=== PATIENT | female | born 1970 | race Caucasian/White ===

== ENCOUNTER → 2017-09-06 14:48 | Outpatient (CLI) | payer MEDICAID, SELFPAY ==
--- NOTE | 2017-09-06 14:53 | HPBI_ITS ---
MAMMOGRAPHY - BILATERAL SCREENING REASON FOR EXAM: Female, 46 years old. Routine annual screening examination. PERTINENT HISTORY: Non-contributory. TECHNIQUE: Digital bilateral breast johnny (3D mammographic acquisition) in the CC and MLO projections. 2-D mediolateral oblique (MLO) and craniocaudad (CC) views of both breasts were obtained. CAD: Full Field Digital Mammography with Computer Added Detection was performed. COMPARISON: Comparison is made with prior study dated June 13, 2016. FINDINGS: Breast Composition: The breasts are heterogeneously dense, which may obscure small masses. There are no dominant masses or suspicious calcifications. No other significant abnormalities are identified. There has been no significant change since the prior study. HPBI/SCREENING MAMM (CAD), BILAT IMPRESSION: Stable bilateral screening mammogram. Yearly follow-up mammogram recommended. (A) ASSESSMENT CATEGORY: BIRADS Category 1: Negative. A letter regarding these results will be sent to the patient by the facility within 30 days. Approximately 10% of breast cancers are not detected by mammography. A normal mammogram should not delay biopsy of a clinically suspicious abnormality. [id number] Electronically Signed: Charan Thurman MD at 9:29 EST Tel [phone], Service support ,
== END ==
PROVIDERS: Visit Provider Obstetrics & Gynecology
DX: Z12.31 Encounter for screening mammogram for malignant neoplasm of breast (principal)
CPT/HCPCS: 77063; 77067

== ENCOUNTER → 2018-07-06 11:36 | Outpatient (CLI) | payer MEDICAID, SELFPAY ==
[2018-07-13 12:39] LABS: HPV APTIMA, High Risk Negative (Negative)
== END ==
PROVIDERS: Visit Provider Obstetrics & Gynecology
DX: Z12.4 Encounter for screening for malignant neoplasm of cervix (principal)
CPT/HCPCS: 88175; G0145

== ENCOUNTER → 2020-06-24 12:10 | Outpatient (CLI) | payer BC, SELFPAY ==
[2020-06-19 10:20] VITALS: BMI 25.2
--- NOTE | 2020-06-24 12:11 | BI_ITS ---
MAMMOGRAPHY - BILATERAL SCREENING REASON FOR EXAM: Female, 49 years old. Routine annual screening examination. PERTINENT HISTORY: Patient for breast reduction surgery TECHNIQUE: Digital bilateral breast jay (3D mammographic acquisition) in the CC and MLO projections. 2-D mediolateral oblique (MLO) and craniocaudad (CC) views of both breasts were obtained. CAD: Full Field Digital Mammography with Computer Added Detection was performed. COMPARISON: 09/06/2017 FINDINGS: Breast Composition: Dense There are no dominant masses or suspicious calcifications. No other significant abnormalities are identified. BI/SCREEN MAMM (CAD) W/JAY BILAT IMPRESSION: Stable bilateral screening mammogram. Yearly follow-up mammogram recommended. (A) ASSESSMENT CATEGORY: BIRADS Category 1: Negative. A letter regarding these results will be sent to the patient by the facility within 30 days. Approximately 10% of breast cancers are not detected by mammography. A normal mammogram should not delay biopsy of a clinically suspicious abnormality. [id number] Electronically Signed: Vadim Prieto, at 14:11 EST Tel , Service support ,
== END ==
LOC: OPBI 12:11
PROVIDERS: Referring Provider Nurse Practitioner Family; Visit Provider Nurse Practitioner Family
DX: Z12.31 Encounter for screening mammogram for malignant neoplasm of breast (principal)
CPT/HCPCS: 77063; 77067

== ENCOUNTER 2020-06-29 13:16 | Observation (INO) | payer SELFPAY ==
[2020-06-19 10:20] VITALS: BMI 25.2
--- NOTE | 2020-06-28 12:05 | PCM.HP.BLA ---
History and Physical Date of Admission: 06/29/20 HISTORY OF PRESENT ILLNESS 49 year old female presents with complaints of bilateral macromastia as well as associated painful symptomatology of neck pain, thoracic back pain, bilateral shoulder pain from shoulder grooving from the weight of her breast on her bra straps, an inframammary intertrigo for which she uses powders for relief. She denies any trauma to her breasts. Denies any nipple discharge. She likes to go jogging and is having trouble because of the painful symptomatology. She had a recent mammogram on 06/24/20. It showed breast Composition was dense. There are no dominant masses or suspicious calcifications. No other significant abnormalities are identified. She presents at this time for further evaluation and treatment. PAST MEDICAL HISTORY Intertrigo Shoulder pain Chronic thoracic back pain Chronic neck pain Macromastia Breast lump IBS (irritable bowel syndrome) PAST SURGICAL HISTORY ALLERGIES No Known Allergies MEDICATIONS None FAMILY HISTORY Grandfather - Colon cancer Grandmother - CVA (cerebral vascular accident) Sister - Seizures Father - Skin cancer SOCIAL HISTORY Smoking Status: Never smoker REVIEW OF SYSTEMS General - Denies fever, weight loss, and fatigue. Eyes - Denies cataracts and glaucoma. ENT - Denies nasal congestion and sore throat. Endocrine - Denies excessive thirst and urination. Skin - Denies suspicious lesions and skin cancer. Has inframammary intertrigo for which she uses powders for relief. Musculoskeletal - Denies weakness of muscles and joints, and arthritis. Has joint pain and joint stiffness and neck pain and back pain. Her neck and back pain involve cervical and thoracic area. Has bilateral shoulder pain from shoulder grooving from the weight of her breasts on her bra straps. Neuro - She has a history of headaches and migraines. Cardiovascular - Denies chest pain, fatigue, and shortness of breath with exertion. Psych - Denies anxiety and depression. Respiratory - Denies chronic cough and shortness of breath. Gastrointestinal - Denies nausea, vomiting, diarrhea, and constipation. Hematologic - Denies abnormal bruising and bleeding. Genitourinary - Denies hematuria and urinary frequency. PHYSICAL EXAMINATION General - Alert and oriented. Her bra size is DD. HEENT - PERRL. EOMI. Throat is clear. Neck - Supple. No cervical adenopathy. No bony tenderness. There is some pericervical soft tissue tenderness. Lungs- Clear to auscultation. Heart - Regular rate and rhythm. Breasts - Patient has bilateral macromastia. No breast masses palpable. No axillary adenopathy noted. There is additional breast tissue on the left lateral breast near the axilla. Measures 7 cm. Distance from midclavicular line on the left to nipple is 29 cm and from the nipple to the inframammary fold is 12 cm. Distance from midclavicular line on the right to the nipple is 29 cm and from the nipple to the inframammary fold is 11 cm. Nipple areolar complex diameter is 7 cm bilaterally. No active inframammary intertrigo noted at this time. Abdomen - Soft and non distended. Back - No bony tenderness noted. There is perivertebral soft tissue tenderness in the upper thoracic area. Extremities - FROM. No axillary adenopathy. Radial pulses are palpable. There is some bilateral shoulder tenderness with shoulder grooving from the weight of her breasts on her bra straps. Neuro - CN II-XII grossly intact. Psych - Normal mood and affect. ASSESSMENT 1. Bilateral macromastia. 2. Neck pain. 3. Thoracic back pain. 4. Bilateral shoulder pain from shoulder grooving from the weight of the breasts on her bra straps. 5. Inframammary intertrigo. PLAN Discussed with the patient the procedure of breast reduction mammoplasty. I feel this procedure would be beneficial in this patient as it would help relieve her painful symptomatology. She had a mammogram on 06/24/20. It showed breast Composition was dense. There are no dominant masses or suspicious calcifications. No other significant abnormalities are identified. At some point postoperatively would like to get a breast reduction baseline mammogram. I would remove approximately 500 grams of breast tissue per side. We will send the tissue to pathology for analysis to rule out carcinoma. At the time of the breast reduction, will excise the additional breast tissue on the left lateral breast near the axilla. Discussed with patient the extent of scarring for this procedure. The biggest risk for wound healing problems is the T-zone area. Usually wound care and sometimes antibiotics are necessary for healing in this area. She would have drains in for a few day depending on the amount of tissue that is removed. She will be on antibiotics until the drains are removed. In general, the final breast size will be in the high B to low C range. Patient voices understanding. Surgery will be done under general anesthesia with a surgical observation overnight stay in the hospital. She will have drains in for a few days and be maintained on antibiotics until the drains are removed. She will be on a lifting restriction for 6 weeks and wear a surgical compression bra for 6 weeks. The patient doesn't want to wait for insurance approval for the surgery. She wants to proceed, and she understands she will be financially responsible. She voices understanding. Patient was informed of the risks and complication of the procedure including alternatives to surgery. These were discussed with her personally. She voices understanding and wishes to proceed. Some of the risks and complications were included in a form from the [employer]. She had questions regarding her surgery that were answered personally and to her satisfaction. Her consents were signed. Photographs were taken today. We discussed the current risks associated with COVID-19. While it is understood that there is a community spread of COVID-19, the risk of gabriela COVID-19 while at [facility] ([facility]) is very low; however, the risk cannot be completely mitigated because of the community spread of the disease. We discussed in detail the risk of exposure to and/or potential harm posed by the COVID-19 virus with having a surgery/procedure at this time versus the risk of delaying the surgery/procedure. It is not possible to know either the risk of delaying the surgery or procedure or chance of getting an infection with perfect accuracy, but a joint decision was made to proceed at this time with the scheduled surgery/procedure as indicated on the consent form. Patient was notified that we will need to comply with any screening or testing [facility] wishes to perform or that surgery may be delayed for any positive results. Discussed with the patient that I was tested for COVID-19 on 01/30/20 which was negative and on 02/13/20 which was negative and on 02/27/20 which was negative and on 03/12/20 which was negative and on 03/26/20 which was negative and on 04/16/20 which was negative and on 05/07/20 which was negative and on 06/11/20 which was negative. My testing regimen at this time is to be COVID-19 tested every 2 weeks or so. Procedure Criteria Procedure Type: Elective COVID Risk Discussion: The surgeon/proceduralist and patient have discussed in detail the risk of exposure to and/or potential harm posed by the COVID-19 virus with having a surgery/procedure at this time versus the risk of delaying the surgery/procedure. It is not possible to know either the risk of delaying the surgery or procedure or chance of getting an infection with perfect accuracy, but a joint decision was made between the patient and the surgeon/proceduralist to proceed at this time with the scheduled surgery/procedure as indicated on the consent form.
[2020-06-29] VITALS (12 sets, daily range): BP systolic 98–133; BP diastolic 49–85; PULSE 67–102; RESP 16–18; TEMP 36.8–37.5; O2SAT 95–100; BMI 26.9
[2020-06-29 06:14] LABS: Internal QC Validated? YES +Cl - CLEAR BKGD; Pregnancy, Urine Negative Negative
[2020-06-29 06:30] LABS: Bedside Glucose 91 mg/dL (70-110)
[2020-06-29] MEDS: Gabapentin 600 MG Tablet PO (06:36)
[2020-06-29] MEDS: Acetaminophen 500 MG Tablet 1000 MG PO ×2 (06:36→19:06)
[2020-06-29] MEDS: Scopolamine 1mg/72hr Patch 1 PATCH TD (06:36)
[2020-06-29 06:42] LABS: Magnesium 2.4 mg/dL (1.6-2.6)
[2020-06-29] MEDS: Lactated Ringers 1,000 ML 40 ML IV ×2 (06:50→09:00)
--- NOTE | 2020-06-29 07:30 | BR_PTH ---
PATIENT: IRENA ESCOBAR LOC: MS3 U#:[id number] AGE/SX: 49/F [place] [facility] [place]: Dr. Pa Brooke MD : 1970 BED: 1 DIS: 06/30/2020 SPEC #: [id number] RECD: 06/29/20 12:04 STATUS: DALLIN CHERI #: [id number] ROBIN: 06/29/20 07:[address]: Pa Brooke DEPT: SURGICAL PATHOLOGY RECD BY: Seda Guardado ENTERED: 06/29/20 12:52 SP TYPE: MAMOPLASTY OTHR DR: Patrica Primary Care Phys Tissues: A - Right breast, NOS B - Left breast, NOS Procedures: Surgery Specimen Level IV HEADER OPERATION: Breast reduction mammoplasty PRE-OP DIAGNOSIS: Bilateral macromastia; neck and thoracic back pain; bilateral shoulder pain; inframammary intertrigo TISSUE SUBMITTED: A - Right breast tissue, B - Left breast tissue MICROSCOPIC DIAGNOSIS A. Right breast tissue, reduction mammoplasty: Pieces of benign breast tissue with focal fibrocystic changes and mild intraductal hyperplasia without atypia (517 gm). Skin, no pathologic diagnosis. B. Left breast tissue, reduction mammoplasty: Pieces of benign breast tissue with focal fibrocystic changes and mild intraductal hyperplasia without atypia (520 gm). Skin, no pathologic diagnosis. FARTUN:eunice 07/01/20 MICROSCOPIC DESCRIPTION Slides are reviewed. GROSS DESCRIPTION A - Received in fixative is one container labeled with the patient's name and designated right breast. The specimen consists of multiple irregular fragments of fibroadipose with a few of the pieces showing hopkins-brown skin and detached pieces of hopkins-brown skin weighing in aggregate 517 gm and measuring in aggregate 21 x 18 x 5 cm. Sections reveal yellow adipose cut surfaces with hopkins-white fibrous areas. No obvious mass lesion is identified. Monorail Operator sections are submitted in six cassettes. Cassette 6 also contains the skin piece. B - Received in fixative is one container labeled with the patient's name and designated left breast. The specimen consists of multiple irregular fragments of fibroadipose with a few of the pieces showing hopkins-brown skin and detached pieces of hopkins-brown skin weighing in aggregate 520 gm and measuring in aggregate 19 x 18 x 5 cm. Sections reveal yellow adipose cut surfaces with hopkins-white fibrous areas. No obvious mass lesion is identified. Monorail Operator sections are submitted in six cassettes. Cassette 1 also contains the skin piece. / FARTUN:eunice 06/30/20 TC:5 CPT: 39852 x2
[2020-06-29] MEDS: Cefazolin 2 GM in 0.9% Normal Saline 100 ML IV (07:40)
[2020-06-29] MEDS: Lidocaine 1% /Epi 1:100 (20ml) 20 ML Vial (08:15)
[2020-06-29] MEDS: Lactated Ringers 1,000 ML 60 ML IV ×3 (09:00→17:26)
--- NOTE | 2020-06-29 13:02 | OP.PCM_ITS ---
Report of Operation Date of Procedure: 06/29/20 Pre-Operative Diagnosis: 1. Bilateral macromastia. 2. Neck pain. 3. T horacic back pain. 4. Bilateral shoulder pain from shoulder grooving from the weight of the breasts on her bra straps. 5. Inframammary intertrigo. Post-Operative Diagnosis: Same. Surgery/Procedure Performed:: Bilateral breast reduction mammaplasty. Description of Surgical Findings:: 49 year old female presents with complaints of bilateral macromastia as well as associated painful symptomatology of neck pain, thoracic back pain, bilateral shoulder pain from shoulder grooving from the weight of her breast on her bra straps, an inframammary intertrigo for which she uses powders for relief. She denies any trauma to her breasts. Denies any nipple discharge. She likes to go jogging and is having trouble because of the painful symptomatology. She had a recent mammogram on 06/24/20. It showed breast Composition was dense. There are no dominant masses or suspicious calcifications. No other significant abnormalities are identified. Patient was informed of the risks and complications of the procedure including alternatives to surgery. These were discussed with the patient personally. Patient voices understanding and wishes to proceed. Some of the risks and complications were included in a form from the [employer]. IV Fluids - 2450 ml. Urine Output - 550 ml. Tissue removed from the left breast - 496 grams. Tissue removed from the right breast - 496 grams. I used Damaris absorbable hemostat, (I used 2 vials, one in each breast). Reference Number - [id number]. Lot Number - [id number] Expiration - December 25, 2024, (right breast). Reference Number - [id number]. Lot Number - [id number]. Expiration - January 25, 2025, (left breast). digital media buyer: Melanie Henao. Type of Anesthesia:: General Specimen's removed: 1. Left breast tissue to Pathology. 2. Right breast tissue to Pathology. Drains: Daren x2 (one in each breast). Estimated Blood Loss (mL): 150 ml. Fluids Replaced: 3000 ml (IV Fluids 2450 ml, Urine Output 550 ml). Description of Procedure: In the preop area, the patient was placed in the sitting position and preoperative markings were made. The sternum midline was marked down to the umbilicus. The inframammary folds were marked bilaterally. The midclavicular line was then marked down to the nipple, then from the nipple to the inframammary fold. The inframammary fold was then superimposed on the midclavicular line and I made a point 1 cm below that to be the new position of the nipple-areolar complex. 7 cm lines were then drawn divergent from that point to encompass the nipple-areolar complex. The distance between the divergent lines was 9 cm. The patient was then placed in the supine position and taken to the operating room and placed under general anesthesia and her breasts were prepped and draped in usual fashion. Ioban draping was also used. SCDs were placed for DVT prophylaxis. Perioperative antibiotics were given intravenously. A Rooney catheter was also placed. For the surgery I wore an N95 mask and wore proper eyewear protection. I then guanakito straight lines down f rom the lines drawn divergent around the nipple-areolar complex down to the inframammary fold. The width of the pedicle is 9 cm. I then used a 42 mm circular template for a new size of the nipple-areolar complex. The central markings were infiltrated with Xylocaine and epinephrine. The central skin was then deepithelialized. I started on the left side first and then went to the right side. I then mobilized medial and lateral breast flaps at the level of Carlos's fascia down to about 1-2 cm from the chest wall. This was met in the midline of the breast with dissection at the level of Carlos's fascia down to about 1-2 cm from the chest wall. Once the central breast mound pedicle was from the skin envelope, the reduction was then begun. Most of the tissue was removed from the superior aspect of the breast and the lateral aspect of the breast. I then sutured the leading edge of the medial and lateral breast flaps to the midline of the inframammary fold with 2-0 Vicryl suture. The vertical incision was approximated using surgical clips. The excess tissue from the medial and lateral breast flaps were excised and the horizontal incision was approximated using surgical clips. The patient was then placed in a sitting position. Using a vertical limb length of 4.5 cm, I guanakito the new position of the new nipple-areolar complexes on both breasts. They were in good position on the central aspect of the breast mound. Good symmetry was noted between the left breast and the right breast. Good shape and contour and projection was noted and appeared clinically to be a C cup. The patient was then placed back in the supine position and the surgical clips were removed. The breast wounds were then irrigated with Irrisept 0.05% Chlorhexidine solution which was follo wed by saline irrigation. Hemostasis was obtained using electrocautery. The tissue removed from the left breast was 496 grams. The tissue removed from the right breast was 496 grams. The tissue that was removed from the breasts was sent to Pathology for analysis to rule out carcinoma. The patient had additional breast tissue in the left lateral aspect of her breast near the axilla with redundant skin. I tried to excise this excess breast tissue from the inside. It was difficult. So a separate oblique elliptical incision was made over the additional breast tissue and dissection was carried down to the chest wall. The additional breast tissue and redundant skin was excised and sent with the breast tissue. After hemostasis was obtained using electrocautery, I then sprayed Damaris absorbable hemostat into both breast wounds. I used one vial for each side. I then placed a size 15 Daren drain into each breast wound to be brought through the lateral aspect of the horizontal incision. I then closed the breast wounds by first approximating the leading edge of the medial and lateral breast flaps to the midline of the inframammary fold with 2-0 Vicryl suture. The deep dermis and subcutaneous tissue of the vertical incision and the horizontal incisions were approximated using 3-0 Monocryl interrupted sutures. The horizontal incision was then approximated using 4-0 V-Loc unidirectional barbed running subcuticular suture. I also placed a few 4-0 Prolene vertical mattress interrupted sutures at the level of the Tzone. The vertical incision was then closed on the skin with 4-0 Prolene interrupted sutures. With a vertical limb length of 4.5 cm, I guanakito a circular incision where the nipple-areolar complex would be brought through this keyhole incision. Incisions were made and the nipple areolar complex was brought through the keyhole incision. The nipple-areolar complex was secured to the breast skin using 3-0 Monocryl interrupted sutures for deep dermis and subc utaneous tissue. The skin was approximated using 4-0 Prolene simple interrupted sutures. I sutured the drains to the skin using 3-0 nylon suture. The additional incision on the left lateral breast near the axilla was closed in a layered fashion with 3-0 Monocryl interrupted sutures for the deep dermis and subcutaneous tissue. The skin was approximated with 4-0 Prolene simple interrupted sutures and vertical mattress interrupted sutures. The incisions were then covered with Histoacryl skin tissue adhesive. At the end of the procedure, the breasts were soft with no evidence of vascular compromise. No evidence of hematomas were noted. The nipples were viable. I then dressed the breasts with a Kerlix gauze and a surgical bra. Then patient tolerated the procedure well and will be sent to the recovery room in satisfactory condition. She will be admitted for surgical observation overnight stay. She will go home tomorrow once she is tolerating oral pain medication. I will remove the drains in a few days. She will keep her head elevated during the initial postoperative period. She will be maintained on a lifting restriction and keep her head elevated during the initial postoperative period. Post-discharge, she may get a compression sports bra as well. She will have the Rooney removed in the morning. She will be sent home on antibiotics and pain medicine. Sutures will be removed in 1-2 weeks. Grafts/Implants Used: Damaris. - Complications None. - Admit VTE Documentation VTE Present on Admission: No VTE Mechan Device Prophylaxis: SCD's VTE Pharm Prophylaxis ordered?: Yes Surgery Charges CPT - 43758 ICD-10 - N62, M54.2, M54.6, M25.519, L30.4 [id number] N62, M54.2, M54.6, M25.519, L30.4
[2020-06-29] MEDS: Cefazolin 1 GM/50 ML BAG IV (16:29)
[2020-06-29] MEDS: Gabapentin 100 MG Capsule 200 MG PO (17:27)
[2020-06-29] MEDS: Docusate Sodium 100 MG Capsule PO (21:22)
[2020-06-29] MEDS: 0.9% Saline Lock 10 ML Syringe IV (21:22)
[2020-06-30] MEDS: Cefazolin 1 GM/50 ML BAG IV ×2 (00:21→08:14)
[2020-06-30] MEDS: Acetaminophen 500 MG Tablet 1000 MG PO ×3 (00:22→13:43)
[2020-06-30 01:00] VITALS: BP 106/57; PULSE 100; RESP 16; TEMP 37.2; O2SAT 99
[2020-06-30 04:31] VITALS: BP 97/53; PULSE 98; RESP 16; TEMP 37.1; O2SAT 94
[2020-06-30 05:45] LABS: Hematocrit 26.8 % (37-47); Hemoglobin 8.3 g/dL (12.0-15.0); Mean Corpuscular Hgb 25.9 pg (27.0-32.0); Mean Corpuscular Volume 83.8 fL (81-99); Mean Platelet Vol. 11.9 fl (6.2-12.0); Platelet Count 170 K/mm3 (150-450); RBC Distribution Width CV 13.9 % (11.6-14.6); RBC Distribution Width SD 42.7 fl (35.1-43.9); White Blood Count 8.4 K/mm3 (4.4-11.0)
[2020-06-30 06:34] LABS: Anion Gap 3 (5-15); BUN 13 mg/dL (7-18); BUN/Creat Ratio 16.4 RATIO (10-20); Calcium,Total 7.8 mg/dL (8.5-10.1); Chloride 106 mmol/L (98-107); Creatinine, Serum 0.79 mg/dL (0.55-1.02); EST Glomerular Filtration Rate 82 mL/min (>60); Est Glom Filt Rate - Afr Amer 100 mL/min (>60); Estimated Creatinine Clearance 72.04 ml/min; Glucose 100 mg/dL (74-106); Potassium 3.7 mmol/L (3.5-5.1); Prealbumin 19.9 mg/dL (20.0-40.0); Sodium Level 137 mmol/L (136-145)
[2020-06-30 07:05] VITALS: O2SAT 95
[2020-06-30] MEDS: Gabapentin 100 MG Capsule 200 MG PO ×2 (08:14→11:51)
[2020-06-30] MEDS: Docusate Sodium 100 MG Capsule PO (08:14)
[2020-06-30] MEDS: Enoxaparin 40 MG/0.4 ML Syringe SC (08:14)
[2020-06-30 08:15] VITALS: BP 121/61; PULSE 88; RESP 18; TEMP 36.7; O2SAT 97
[2020-06-30] MEDS: 0.9% Saline Lock 10 ML Syringe IV (09:28)
[2020-06-30 14:40] VITALS: BP 124/61; PULSE 100; RESP 16; TEMP 36.9; O2SAT 97
--- NOTE | 2020-06-30 15:10 | PN.SURG_ITS ---
Subjective: Postop #1 Patient is resting comfortably. - Physical Exam Vitals/I&O's: Vital Signs Temp Pulse Resp BP Pulse Ox 98.4 F 100 16 124/61 H 97 06/30/20 14:40 06/30/20 14:40 06/30/20 14:40 06/30/20 14:40 06/30/20 14:40 Oxygen Flow Rate (L/min) 6 Oxygen Delivery Method Room Air Weight: 152 lb 1.903 oz Body Mass Index (BMI) 26.9 Intake and Output for Last 24 Hours 06/28/20 06/29/20 06/30/20 23:59 23:59 23:59 Intake Total 2985.67 / 2985.67 1729 / 1729 Output Total 770 / 1075 2075 / 2075 Balance 2215.67 / 1910.67 -346 / -346 Drainage 95 ml yesterday, 125 ml today. General: Alert, Oriented x3 HEENT: PERRLA, EOMI Oral: Moist Mucosa Neck: Supple Abdomen: Soft, Non-Distended Skin: Incision - breast incisions are dry and intact. Breasts are soft and symmetrical. Good breast contour noted. No clinical evidence of hematoma. Nipples are viable. Neurological: Cranial nerves II-XII grossly intact Psych/Mental Status: Normal Affect, Appropriate Laboratory Results 06/30/20 05:00: WBC 8.4, RBC 3.20 L, Hgb 8.3 L, Hct 26.8 L, MCV 83.8, MCH 25.9 L , MCHC 31.0 L, RDW Std Deviation 42.7, RDW Coeff of Sheri 13.9, Plt Count 170, MPV 11.9 06/30/20 05:00: Sodium 137, Potassium 3.7, Chloride 106, Carbon Dioxide 28.0, Anion Gap 3 L, BUN 13, Creatinine 0.79, Estim Creat Clear Calc 72.04, Est GFR (MDRD) Af Amer 100, Est GFR (MDRD) Non-Af 82, BUN/Creatinine Ratio 16.4, Glucose 100, Calcium 7.8 L, Prealbumin 19.9 L Current Medications Acetaminophen (Acetaminophen 500 Mg Tablet) 1,000 mg PO Q6H YANG Last Admin: 06/30/20 13:43 Dose: 1,000 mg Documented by: Docusate Sodium (Docusate Sodium 100 Mg Capsule) 100 mg PO BID [facility] Last Admin: 06/30/20 08:14 Dose: 100 mg Documented by: Enoxaparin Sodium (Enoxaparin 40 Mg/0.4 Ml Syringe) 40 mg SC DAILY [facility] Last Admin: 06/30/20 08:14 Dose: 40 mg Documented by: Enteral Nutritional Formula (Ensure Surgery 237 Ml Liquid) 237 ml PO TIDCM [facility] Last Admin: 06/30/20 11:52 Dose: Not Given Documented by: Gabapentin (Gabapentin 100 Mg Capsule) 200 mg PO TIDCM [facility] Last Admin: 06/30/20 11:51 Dose: 200 mg Documented by: Hydromorphone HCl (Hydromorphone 1 Mg/Ml Syringe) 0.5 - 1 mg IV Q3H PRN PRN PRN Reason: Pain Score 6-10 Cefazolin Sodium () 1 gm in 50 mls @ 100 mls/hr IV Q8H [facility] Last Infusion: 06/30/20 08:44 Dose: Infused Documented by: Magnesium Chloride (Magnesium Chloride 64 Mg Delay Rel.Tablet) 128 mg PO DAILY PRN PRN PRN Reason: Constipation Ondansetron HCl (Ondansetron Odt 4 Mg Tablet) 4 mg PO Q6H PRN PRN PRN Reason: NAUSEA Oxycodone HCl (Oxycodone 5 Mg Tablet) 5 - 10 mg PO Q4H PRN PRN PRN Reason: Pain Score 4-10 Polysaccharide Iron Complex (Iron Polysaccharide Complex 150 Mg Capsule) [facility] Scopolamine HBr (Scopolamine 1mg/72hr Patch) 1 patch TD Q3D [facility] Stop: 06/30/20 16:01 Last Admin: 06/29/20 15:38 Dose: Not Given Documented by: Sodium Chloride (0.9% Saline Lock 10 Ml Syringe) 10 - 40 ml IV UD PRN PRN Reason: SALINE FLUSH Last Admin: 06/30/20 09:28 Dose: 10 ml Documented by: Medical Necessity - Tobacco Use Smoking Status: Never smoker Tobacco Use: Non-smoker Assessment/Plan All Active Problems (Last Reviewed 06/21/20 @ 12:[address] Pa Brooke MD) Acute postoperative anemia due to expected blood loss (Acute) 1. Bilateral macromastia. 2. Neck pain. 3. Thoracic back pain. 4. Bilateral shoulder pain from shoulder grooving from the weight of the breasts on her bra straps. 5. Inframammary intertrigo. 6. s/p bilateral breast reduction mammaplasty. 7. Acute postoperative anemia due to expected blood loss. Breast incisions dry and intact. Breasts are soft and symmetrical. No clinical evidence of hematoma. Nipples are viable. Tolerating po analgesia. Hgb 8.3. She has acute postoperative anemia due to expected blood loss. Operative blood loss was 150 ml. She also has IV dilution with her I's/O's increased 2 liters. There is no clinical evidence of bleeding. Will start her on Iron supplementation. She states she has Iron supplements at home and will take them. Will recheck a Hgb as an outpatient in a week. Discharge home today. Followup on 07/03/20, to remove the drains. Keep head elevated. Continue surgical bra compression. Continue lifting restriction. Wrote script for Cefadroxil until the drains are removed. Wrote script for Percocet for pain (40 tabs).
--- NOTE | 2020-06-30 15:18 | DCINST_ITS ---
You will use the following diet at home:: No restrictions, Other - encourage nutritional supplementation with protein to help the healing process. Discharge Activity: May not drive while taking narcotic pain medications., May Not Shower - until the drains are removed., - - keep head elevated. no heavy lifting. May resume sexual activity in: No Restrictions Weight Bearing Status: Weight bearing as tolerated Lifting Restrictions: 20 lbs. Keep extremity elevated above heart level: - - elevate head. Call your doctor if your incision/area has: Continuous Slow Oozing, Sudden Increased Bleeding, Increased Pain/ Swelling, Increased Redness, Foul Smelling Discharge, Swelling at the incision site Call your doctor if you observe: Fever of 101 or Higher, Coldness, Increased Pain, Shortness of breath, Chest pain, Calf discomfort, Uncontrolled pain Suture Line Care: - - dry dressings daily. Change Dressing in (Days):: 1 - dry dressings daily. Cleanse incision/area with: - - may shower after the drains are removed. Drain: Suction - julien drain x2 to bulb suction. empty and record output daily. Additional Instructions: Patient states she has Iron supplements at home which she can take. If she cannot find them, then I will send script for Iron supplementation to her Pharmacy. Allergies/Adverse Reactions: Allergies No Known Allergies Allergy (Verified 06/29/20 06:08) Medications to take at Discharge Cefadroxil [Duricef] 500 mg PO BID #10 cap 06/29/20 Oxycodone HCl/Acetaminophen [Percocet 5/325] 1 tab PO Q4H PRN PRN 7 Days #40 tab 06/29/20 Iron Polysaccharide Complex [Ferrex 150] 150 mg PO DAILYCM capsule 06/30/20 The following prescriptions were given: Cefadroxil [Duricef] 500 mg PO BID #10 cap Transmission Status: Received by [facility] Oxycodone HCl/Acetaminophen [Percocet 5/325] 1 tab PO Q4H PRN PRN 7 Days #40 tab PRN Reason: Pain Score 6-10 Transmission Status: Received by [facility] Orders to be completed after discharge: CBC-Complete Blood Cnt No Diff Time Frame: 1 Week, Facility: [facility], Location: [facility] Building Primary Care Physician: Care Physician,No Primary [Primary Care Provider] - Test Results: Test results from this visit will be discussed in further detail at your follow- up appointment, if applicable. Please Follow Up With: Pa Brooke MD - call [phone] for questions When: monday07/03/20 at 200pm. Proposed Discharge Date: 06/30/20
[2020-06-30] MEDS: Iron Polysaccharide Complex 150 MG CAPSULE PO (16:03)
== END 2020-06-30 16:29 | disposition home or self-care (01) ==
LOC: MS3 06-30 07:24
PROVIDERS: Anesthesiology; Admitting Provider Surgery; Referring Provider Surgery; Visit Provider Surgery
PROC: 0H0U0ZZ Alteration of Left Breast, Open Approach (ICD-10-PCS; CPT 19318; principal; 2020-06-29 07:15)
DX: N62 Hypertrophy of breast (principal); Z20.828 Contact with and (suspected) exposure to other viral communicable diseases; M54.6 Pain in thoracic spine; M54.2 Cervicalgia; M25.511 Pain in right shoulder; M25.512 Pain in left shoulder; L30.4 Erythema intertrigo; K58.9 Irritable bowel syndrome, unspecified
CPT/HCPCS: 00402; 19318; 36415; 80048; 81025; 82962; 83735; 84134; 85027; 87426; 88305; 96365; 96366; 96372; 99218; C9803; J7120; A4216; G0378; G0379; J2405; Q9968

== ENCOUNTER → 2020-07-10 09:35 | Outpatient (CLI) | payer BC, MEDICAID, SELFPAY ==
[2020-07-10 11:57] LABS: Hematocrit 29.3 % (37-47); Hemoglobin 8.7 g/dL (12.0-15.0); Mean Corp Hgb Conc 29.7 g/dL (32-36); Mean Corpuscular Volume 84.2 fL (81-99); Mean Platelet Vol. 11.1 fl (6.2-12.0); Platelet Count 286 K/mm3 (150-450); RBC Distribution Width CV 14.1 % (11.6-14.6); RBC Distribution Width SD 43.2 fl (35.1-43.9); Red Blood Count 3.48 M/mm3 (4.2-5.4); White Blood Count 4.1 K/mm3 (4.4-11.0)
== END ==
PROVIDERS: Referring Provider Surgery; Visit Provider Surgery
DX: D62 Acute posthemorrhagic anemia (principal)
CPT/HCPCS: 36415; 85027

== ENCOUNTER → 2020-08-06 14:13 | Outpatient (CLI) | payer OTHER, MEDICAID, SELFPAY ==
[2020-08-06 14:33] LABS: Hematocrit 34.2 % (37-47); Hemoglobin 10.5 g/dL (12.0-15.0); Mean Corp Hgb Conc 30.7 g/dL (32-36); Mean Corpuscular Hgb 24.9 pg (27.0-32.0); Mean Corpuscular Volume 81.2 fL (81-99); Mean Platelet Vol. 11.8 fl (6.2-12.0); Platelet Count 245 K/mm3 (150-450); RBC Distribution Width CV 13.3 % (11.6-14.6); Red Blood Count 4.21 M/mm3 (4.2-5.4); White Blood Count 4.3 K/mm3 (4.4-11.0)
[2020-08-06 22:29] LABS: Xtra Tube EP Lab EXTRA TUBE
== END ==
PROVIDERS: Referring Provider Surgery; Visit Provider Surgery
DX: D62 Acute posthemorrhagic anemia (principal)
CPT/HCPCS: 36415; 85027

== ENCOUNTER → 2020-12-16 | Outpatient (CLI) | payer OTHER, MEDICAID, SELFPAY ==
[2020-12-21 19:44] LABS: HPV APTIMA, High Risk Negative (Negative); HPV Reflexed? YES, CHARGE PATIENT
== END | disposition home or self-care (01) ==
PROVIDERS: Visit Provider Obstetrics & Gynecology
DX: Z12.4 Encounter for screening for malignant neoplasm of cervix (principal)
CPT/HCPCS: 87624; 88175; G0145

== ENCOUNTER → 2020-12-24 11:46 | Outpatient (CLI) | payer OTHER, MEDICAID, SELFPAY ==
[2020-12-24 15:20] LABS: Absolute Lymphocyte Count 1.65 X10^3/uL (0.83-4.51); Absolute Neutrophil Count 1.9 X10^3/uL (2.0-7.7); Basophil# 0.03 X10^3/uL; Basophil% 0.7 % (0-1); Eosinophil# 0.13 X10^3/uL; Eosinophils% 3.1 % (0-5); Hematocrit 37.7 % (37-47); Hemoglobin 11.3 g/dL (12.0-15.0); Lymphocyte # 1.65 X10^3/ul (0.83-4.51); Lymphocyte % 39.5 % (19-41); Mean Corpuscular Hgb 23.4 pg (27.0-32.0); Mean Corpuscular Volume 78.1 fL (81-99); Mean Platelet Vol. 12.4 fl (6.2-12.0); Monocyte# 0.45 X10^3/uL; Monocyte% 10.8 % (0-10); NRBC Flagged by Analyzer 0 % (0-5); Neutrophil # 1.91 X10^3/uL (2.7-7.7); Neutrophil % 45.7 % (47-70); Platelet Count 223 K/mm3 (150-450); RBC Distribution Width CV 14.4 % (11.6-14.6); RBC Distribution Width SD 40.1 fl (35.1-43.9); Red Blood Count 4.83 M/mm3 (4.2-5.4); White Blood Count 4.2 K/mm3 (4.4-11.0)
[2020-12-24 15:41] LABS: Vitamin B12 685 pg/mL (211-911)
[2020-12-24 16:26] LABS: ALB/GLOB Ratio 1.1 RATIO (0.9-2.4); AST(SGOT) 19 U/L (15-37); Alanine Aminotransfer ALT/SGPT 14 U/L (13-56); Albumin, Serum 4.2 g/dL (3.2-5.0); Alkaline Phosphatase 42 U/L (45-117); Anion Gap 5 (5-15); BUN 17 mg/dL (7-18); BUN/Creat Ratio 19.5 RATIO (10-20); Calcium,Total 9.7 mg/dL (8.5-10.1); Chloride 103 mmol/L (98-107); Creatinine, Serum 0.87 mg/dL (0.55-1.02); EST Glomerular Filtration Rate 74 mL/min (>60); Est Glom Filt Rate - Afr Amer 89 mL/min (>60); Ferritin 5 ng/mL (8-252); Globulin 3.8 g/dL (2.2-4.2); Glucose 88 mg/dL (74-106); Iron 38 ug/dL (50-170); Iron Binding Capacity,Total 484 ug/dL (250-450); Potassium 4.2 mmol/L (3.5-5.1); Sodium Level 138 mmol/L (136-145)
[2020-12-29 16:09] LABS: Endomysial Antibody IgA Negative (Negative)
[2020-12-30 10:26] LABS: Immunoglobulin A 182 mg/dL (87-352); t-Transglutaminase IgA <2 U/mL (0-3)
== END ==
PROVIDERS: PCP Family Medicine; Referring Provider Family Medicine; Visit Provider Family Medicine
DX: D64.9 Anemia, unspecified (principal); K21.9 Gastro-esophageal reflux disease without esophagitis
CPT/HCPCS: 36415; 80053; 82607; 82728; 82746; 82784; 83516; 83540; 83550; 85025; 86255

== ENCOUNTER → 2021-01-04 08:36 | Outpatient (CLI) | payer OTHER, MEDICAID, SELFPAY ==
--- NOTE | 2021-01-04 08:35 | RAD_ITS ---
STUDY: X-RAY - ESOPHAGUS (BARIUM SWALLOW) WITH FLUOROSCOPY REASON FOR EXAM: Female, 50 years old. DYSPHAGIA TECHNIQUE: 16 view(s) of the esophagus were obtained following swallowing of barium. FLUOROSCOPY TIME (if supplied): (23 seconds) minutes/seconds COMPARISON: None. FINDINGS: There is no demonstrated esophageal foreign body. There is no demonstrated stricture or mucosal abnormality. Normal gastroesophageal junction, without a demonstrated hiatal hernia. The patient ingested a 12 mm tablet of barium without any difficulty. Normal visualized aortic arch and descending thoracic aorta. Normal visualized pulmonary parenchyma. Normal visualized osseous structures of the thorax. RAD/Esophagus Dual Contrast IMPRESSION: Normal plain film x-ray examination (barium swallow) of the esophagus. Electronically Signed: Charan Thurman MD at 9:54 EDT , Service support ,
== END ==
PROVIDERS: PCP Family Medicine; Referring Provider Family Medicine; Visit Provider Family Medicine
DX: R13.10 Dysphagia, unspecified (principal)
CPT/HCPCS: 74221

== ENCOUNTER → 2021-01-14 14:03 | Outpatient (CLI) | payer OTHER, MEDICAID, SELFPAY ==
[2021-01-14 15:04] LABS: Absolute Lymphocyte Count 1.34 X10^3/uL (0.83-4.51); Absolute Neutrophil Count 2.1 X10^3/uL (2.0-7.7); Basophil# 0.03 X10^3/uL; Basophil% 0.8 % (0-1); Eosinophil# 0.05 X10^3/uL; Eosinophils% 1.3 % (0-5); Hematocrit 38.5 % (37-47); Hemoglobin 11.7 g/dL (12.0-15.0); Lymphocyte # 1.34 X10^3/ul (0.83-4.51); Lymphocyte % 34.4 % (19-41); Mean Corp Hgb Conc 30.4 g/dL (32-36); Mean Corpuscular Hgb 24.3 pg (27.0-32.0); Mean Corpuscular Volume 79.9 fL (81-99); Monocyte# 0.41 X10^3/uL; Monocyte% 10.5 % (0-10); NRBC Flagged by Analyzer 0 % (0-5); Neutrophil # 2.05 X10^3/uL (2.7-7.7); Neutrophil % 52.7 % (47-70); Platelet Count 186 K/mm3 (150-450); RBC Distribution Width CV 16.7 % (11.6-14.6); Red Blood Count 4.82 M/mm3 (4.2-5.4); White Blood Count 3.9 K/mm3 (4.4-11.0)
[2021-01-14 15:41] LABS: Ferritin 14 ng/mL (8-252); Iron 35 ug/dL (50-170); Iron Binding Capacity,Total 439 ug/dL (250-450)
== END ==
PROVIDERS: PCP Family Medicine; Referring Provider Family Medicine; Visit Provider Family Medicine
DX: D50.9 Iron deficiency anemia, unspecified (principal)
CPT/HCPCS: 36415; 82728; 83540; 83550; 85025

== ENCOUNTER → 2021-04-16 10:31 | Outpatient (CLI) | payer OTHER, MEDICAID, SELFPAY ==
[2021-04-16 12:17] LABS: Absolute Lymphocyte Count 1.46 X10^3/uL (0.83-4.51); Absolute Neutrophil Count 2.4 X10^3/uL (2.0-7.7); Basophil# 0.02 X10^3/uL; Basophil% 0.5 % (0-1); Eosinophil# 0.08 X10^3/uL; Eosinophils% 1.8 % (0-5); Hematocrit 40.9 % (37-47); Hemoglobin 13.7 g/dL (12.0-15.0); Lymphocyte # 1.46 X10^3/ul (0.83-4.51); Lymphocyte % 33.6 % (19-41); Mean Corp Hgb Conc 33.5 g/dL (32-36); Mean Corpuscular Hgb 28.7 pg (27.0-32.0); Mean Corpuscular Volume 85.6 fL (81-99); Mean Platelet Vol. 11.7 fl (6.2-12.0); Monocyte# 0.38 X10^3/uL; Monocyte% 8.7 % (0-10); NRBC Flagged by Analyzer 0 % (0-5); Neutrophil % 55.2 % (47-70); Platelet Count 179 K/mm3 (150-450); RBC Distribution Width CV 13.5 % (11.6-14.6); RBC Distribution Width SD 41.9 fl (35.1-43.9); Red Blood Count 4.78 M/mm3 (4.2-5.4); White Blood Count 4.4 K/mm3 (4.4-11.0)
[2021-04-16 12:43] LABS: AST(SGOT) 17 U/L (15-37); Alanine Aminotransfer ALT/SGPT 20 U/L (13-56); Albumin, Serum 3.6 g/dL (3.2-5.0); Alkaline Phosphatase 37 U/L (45-117); Anion Gap 5 (5-15); BUN 10 mg/dL (7-18); BUN/Creat Ratio 11.6 RATIO (10-20); Calcium,Total 8.8 mg/dL (8.5-10.1); Chloride 105 mmol/L (98-107); Creatinine, Serum 0.86 mg/dL (0.55-1.02); EST Glomerular Filtration Rate 74 mL/min (>60); Est Glom Filt Rate - Afr Amer 90 mL/min (>60); Ferritin 8 ng/mL (8-252); Globulin 3.7 g/dL (2.2-4.2); Glucose 89 mg/dL (74-106); Iron 57 ug/dL (50-170); Iron Binding Capacity,Total 396 ug/dL (250-450); Potassium 3.8 mmol/L (3.5-5.1); Protein, Total 7.3 g/dL (6.4-8.2); Sodium Level 138 mmol/L (136-145); T4 Free Direct 0.98 ng/dL (0.76-1.46)
== END ==
PROVIDERS: PCP Family Medicine; Referring Provider Family Medicine; Visit Provider Family Medicine
DX: R53.83 Other fatigue (principal); D50.9 Iron deficiency anemia, unspecified
CPT/HCPCS: 36415; 80053; 82728; 83540; 83550; 84439; 84443; 85025

== ENCOUNTER → 2021-06-28 12:47 | Outpatient (CLI) | payer OTHER, MEDICAID, SELFPAY ==
--- NOTE | 2021-06-28 12:49 | BI_ITS ---
MAMMOGRAPHY - BILATERAL SCREENING REASON FOR EXAM: Female, 50 years old. Routine annual screening examination. PERTINENT HISTORY: Non-contributory. History of prior bilateral breast reduction surgery. TECHNIQUE: Digital bilateral breast jay (3D mammographic acquisition) in the CC and MLO projections. 2-D mediolateral oblique (MLO) and craniocaudad (CC) views of both breasts were obtained. CAD: Full Field Digital Mammography with Computer Added Detection was performed. COMPARISON: Comparison is made with prior mammogram dated 06/24/2020 and 09/06/2017. FINDINGS: Breast Composition: The breasts are heterogeneously dense, which may obscure small masses. There are no dominant masses or suspicious calcifications. No other significant abnormalities are identified. There has been no significant change since the prior study. BI/SCRN MAMM (CAD)W/JAY BILAT IMPRESSION: Stable bilateral screening mammogram. Yearly follow-up mammogram recommended. (A) ASSESSMENT CATEGORY: BIRADS Category 1: Negative. A letter regarding these results will be sent to the patient by the facility within 30 days. Approximately 10% of breast cancers are not detected by mammography. A normal mammogram should not delay biopsy of a clinically suspicious abnormality. [id number] Electronically Signed: Charan Thurman MD at 13:52 EST , Service support ,
== END ==
PROVIDERS: PCP Family Medicine; Referring Provider Obstetrics & Gynecology; Visit Provider Obstetrics & Gynecology
DX: Z12.31 Encounter for screening mammogram for malignant neoplasm of breast (principal)
CPT/HCPCS: 77063; 77067

== ENCOUNTER 2021-09-06 10:53 | Outpatient (CLI) | payer OTHER, MEDICAID, SELFPAY ==
[2021-09-06 12:12] LABS: Absolute Lymphocyte Count 1.63 X10^3/uL (0.83-4.51); Absolute Neutrophil Count 2.1 X10^3/uL (2.0-7.7); Basophil# 0.02 X10^3/uL; Basophil% 0.5 % (0-1); Eosinophils% 2.3 % (0-5); Hematocrit 39.5 % (37-47); Hemoglobin 13.1 g/dL (12.0-15.0); Lymphocyte # 1.63 X10^3/ul (0.83-4.51); Lymphocyte % 37.6 % (19-41); Mean Corp Hgb Conc 33.2 g/dL (32-36); Mean Corpuscular Hgb 28.4 pg (27.0-32.0); Mean Corpuscular Volume 85.7 fL (81-99); Mean Platelet Vol. 11.8 fl (6.2-12.0); Monocyte# 0.44 X10^3/uL; Monocyte% 10.1 % (0-10); NRBC Flagged by Analyzer 0 % (0-5); Neutrophil # 2.13 X10^3/uL (2.7-7.7); Platelet Count 195 K/mm3 (150-450); RBC Distribution Width CV 12.7 % (11.6-14.6); RBC Distribution Width SD 39.1 fl (35.1-43.9); Red Blood Count 4.61 M/mm3 (4.2-5.4); White Blood Count 4.3 K/mm3 (4.4-11.0)
[2021-09-06 12:29] LABS: Vitamin D,25 Hydroxy 24.4 ng/mL
[2021-09-06 12:33] LABS: Anion Gap 7 (5-15); BUN 16 mg/dL (7-18); BUN/Creat Ratio 21.1 RATIO (10-20); Calcium,Total 9.3 mg/dL (8.5-10.1); Chloride 104 mmol/L (98-107); Creatinine, Serum 0.76 mg/dL (0.55-1.02); EST Glomerular Filtration Rate 86 mL/min (>60); Est Glom Filt Rate - Afr Amer 104 mL/min (>60); Glucose 85 mg/dL (74-106); Iron 65 ug/dL (50-170); Iron Binding Capacity,Total 414 ug/dL (250-450); PERCENT IRON SATURATION 15.7 % (15.0-55.0); Potassium 3.9 mmol/L (3.5-5.1); Sodium Level 138 mmol/L (136-145)
== END 2021-09-06 23:59 | disposition home or self-care (01) ==
LOC: MFPLAB 10:54
PROVIDERS: PCP Family Medicine; Visit Provider Nurse Practitioner Family
DX: R53.83 Other fatigue (principal)
CPT/HCPCS: 36415; 80048; 82306; 83540; 83550; 85025

== ENCOUNTER → 2022-05-18 | Outpatient (CLI) | payer OTHER, MEDICAID, SELFPAY ==
[2022-05-18 12:00] LABS: Absolute Lymphocyte Count 1.35 X10^3/uL (0.83-4.51); Absolute Neutrophil Count 2.4 X10^3/uL (2.0-7.7); Basophil# 0.02 X10^3/uL; Basophil% 0.5 % (0-1); Eosinophil# 0.09 X10^3/uL; Eosinophils% 2.1 % (0-5); Hematocrit 43.1 % (37-47); Hemoglobin 14.4 g/dL (12.0-15.0); Lymphocyte # 1.35 X10^3/ul (0.83-4.51); Lymphocyte % 32.2 % (19-41); Mean Corp Hgb Conc 33.4 g/dL (32-36); Mean Corpuscular Hgb 29.7 pg (27.0-32.0); Mean Corpuscular Volume 88.9 fL (81-99); Mean Platelet Vol. 11.8 fl (6.2-12.0); Monocyte# 0.35 X10^3/uL; Monocyte% 8.4 % (0-10); NRBC Flagged by Analyzer 0 % (0-5); Neutrophil # 2.37 X10^3/uL (2.7-7.7); Neutrophil % 56.6 % (47-70); Platelet Count 176 K/mm3 (150-450); RBC Distribution Width CV 12.3 % (11.6-14.6); RBC Distribution Width SD 40.5 fl (35.1-43.9); Red Blood Count 4.85 M/mm3 (4.2-5.4); White Blood Count 4.2 K/mm3 (4.4-11.0)
[2022-05-18 12:33] LABS: AST(SGOT) 30 U/L (15-37); Alanine Aminotransfer ALT/SGPT 23 U/L (13-56); Albumin, Serum 3.8 g/dL (3.2-5.0); Alkaline Phosphatase 48 U/L (45-117); Anion Gap 6 (5-15); BUN 13 mg/dL (7-18); BUN/Creat Ratio 13.9 RATIO (10-20); Calcium,Total 9.3 mg/dL (8.5-10.1); Chloride 103 mmol/L (98-107); Creatinine, Serum 0.94 mg/dL (0.55-1.02); EST Glomerular Filtration Rate 67 mL/min (>60); Est Glom Filt Rate - Afr Amer 81 mL/min (>60); Globulin 3.7 g/dL (2.2-4.2); Glucose 114 mg/dL (74-106); Potassium 3.8 mmol/L (3.5-5.1); Protein, Total 7.5 g/dL (6.4-8.2); Sodium Level 138 mmol/L (136-145)
== END | disposition home or self-care (01) ==
LOC: MFPLAB 09:49
PROVIDERS: PCP Family Medicine; Visit Provider Nurse Practitioner Family
DX: R19.00 Intra-abdominal and pelvic swelling, mass and lump, unspecified site (principal)
CPT/HCPCS: 36415; 80053; 85025

== ENCOUNTER 2022-06-13 09:38 | Outpatient (CLI) | payer OTHER, MEDICAID, SELFPAY ==
--- NOTE | 2022-06-13 09:41 | US_ITS ---
STUDY: ABDOMINAL ULTRASOUND REASON FOR EXAM: Female, 51 years old. Abdominal swelling. Left-sided abdominal pain. TECHNIQUE: Transabdominal ultrasound was performed with real-time and static braga scale imaging. TECHNICAL QUALITY: Adequate. COMPARISON: None. FINDINGS: Liver: The liver is enlarged and measures 18.5 cm. There is normal echogenicity of the liver. The bile ducts are within normal limits. There is hepatic color flow. The direction of portal flow is hepatopetal. Cysts are seen in both lobes of the liver. The larger cyst is in the right lobe and measures 3 cm x 2.9 cm x 2.8 cm the largest cyst in the left lobe measuring 1.77 x 1.8 cm x 2.8 cm. Gallbladder: Normal distended gallbladder. The gallbladder wall measures 2.2 mm. There is a negative sonographic Nelson''s sign. There is no pericholecystic fluid. There is a solitary echogenic gallstone within the gallbladder. Sludge is seen within the gallbladder lumen. Common Bile Duct (C.B.D.): The common bile duct measures 4.6 mm. Pancreas: Normal size of the head, body and tail of the pancreas. There is increased echogenicity of the pancreas. There is no demonstrated pancreatic mass or cyst. Spleen: Normal size of the spleen. The spleen measures 9.7 cm x 10.6 x 4.1 cm. Right Kidney: Normal size of the right kidney. The right kidney measures 11.8 cm x 7 5 x 6.2 cm. Normal renal cortex. The right cortex measures 1.4 cm. 2 cysts are seen. The largest is superior lateral aspect of the kidney measuring 7 cm x 5.4 size by 5.5 cm. There is no right hydronephrosis. Left Kidney: Normal size of the left kidney. The left kidney measures 14.1 cm x 8.7 cm x 8.8 cm. Normal renal cortex. The left cortex measures 1.8 cm. 2 cysts are seen. The larger measures 3.7 cm x 3.2 cm x 3.7 cm. There is no left hydronephrosis. Aorta: Unremarkable I.V.C.: The IVC is patent. There is no ascites. US/Abdomen Complete IMPRESSION: Hepatomegaly. Solitary gallstone and sludge in the gallbladder lumen. Hepatic and renal cysts. Electronically Signed: Charan Thurman MD at 14:22 EST ,
== END 2022-06-13 23:59 | disposition home or self-care (01) ==
PROVIDERS: PCP Family Medicine; Visit Provider Nurse Practitioner Family
DX: R19.00 Intra-abdominal and pelvic swelling, mass and lump, unspecified site (principal); R16.0 Hepatomegaly, not elsewhere classified; K80.70 Calculus of gallbladder and bile duct without cholecystitis without obstruction; N28.1 Cyst of kidney, acquired
CPT/HCPCS: 76700

== ENCOUNTER → 2022-09-01 | Outpatient (CLI) | payer OTHER, MEDICAID, SELFPAY ==
[2022-09-01 16:46] LABS: Ammonia < 10.0 umol/L (11-32)
[2022-09-01 16:56] LABS: Absolute Lymphocyte Count 2.19 X10^3/uL (0.83-4.51); Absolute Neutrophil Count 2.3 X10^3/uL (2.0-7.7); Basophil# 0.01 X10^3/uL; Basophil% 0.2 % (0-1); Eosinophil# 0.09 X10^3/uL; Eosinophils% 1.8 % (0-5); Hemoglobin 14.3 g/dL (12.0-15.0); Lymphocyte # 2.19 X10^3/ul (0.83-4.51); Mean Corp Hgb Conc 33.3 g/dL (32-36); Mean Corpuscular Hgb 29.7 pg (27.0-32.0); Mean Corpuscular Volume 89.2 fL (81-99); Mean Platelet Vol. 11.6 fl (6.2-12.0); Monocyte# 0.38 X10^3/uL; Monocyte% 7.6 % (0-10); NRBC Flagged by Analyzer 0 % (0-5); Neutrophil % 46.2 % (47-70); Platelet Count 229 K/mm3 (150-450); RBC Distribution Width CV 11.9 % (11.6-14.6); RBC Distribution Width SD 38.8 fl (35.1-43.9); Red Blood Count 4.82 M/mm3 (4.2-5.4)
[2022-09-01 17:00] LABS: Prothrombin Time (Protime)PT. 12.7 SECONDS (11.7-14.9)
[2022-09-01 17:14] LABS: Erythrocyte Sedimentation Rate 16 mm/hr (0-30)
[2022-09-01 17:50] LABS: Hemoglobin A1c 5.4 % (3.8-5.6)
[2022-09-01 17:54] LABS: AST(SGOT) 25 U/L (15-37); Alanine Aminotransfer ALT/SGPT 15 U/L (13-56); Albumin, Serum 4.2 g/dL (3.2-5.0); Alkaline Phosphatase 58 U/L (45-117); Anion Gap 7 (5-15); BUN 17 mg/dL (7-18); CRP < 2.90 mg/L (0.0-3.0); Calcium,Total 9.4 mg/dL (8.5-10.1); Chloride 103 mmol/L (98-107); Creatinine, Serum 0.85 mg/dL (0.55-1.02); EST Glomerular Filtration Rate 75 mL/min (>60); Est Glom Filt Rate - Afr Amer 91 mL/min (>60); Ferritin 17 ng/mL (8-252); Globulin 4.2 g/dL (2.2-4.2); Glucose 89 mg/dL (74-106); LDH 185 U/L (84-246); Potassium 3.5 mmol/L (3.5-5.1); Protein, Total 8.4 g/dL (6.4-8.2); Sodium Level 139 mmol/L (136-145)
[2022-09-01 18:05] LABS: HIV - WCH Non-Reactive (Nonreactive)
[2022-09-05 13:07] LABS: Anti-Centromere B Ab <0.2 AI (0.0-0.9); Anti-Chromatin <0.2 AI (0.0-0.9); Anti-Jo <0.2 AI (0.0-0.9); Anti-Scleroderma-70 AB <0.2 AI (0.0-0.9); RNP Ab <0.2 AI (0.0-0.9); SJOGREN'S Anti-SS-A test < 0.2 AI (0.0-0.9); SJOGREN'S Anti-SS-B test < 0.2 AI (0.0-0.9); Smith Ab <0.2 AI (0.0-0.9)
[2022-09-05 14:28] LABS: Anti-Mitochondrial AB <20.0 Units (0.0-20.0); Anti-dsDNA Ab 1 IU/mL (0-9)
[2022-09-07 00:07] LABS: Angiotensin Convert Enzyme 91 U/L (14-82); Ceruloplasmin 24.1 mg/dL (19.0-39.0); Cytoplasmic Ab (C-ANCA) <1:20 titer (Neg:<1:20); HEPATITIS B SURFACE AG Negative (Negative); Hep C Antibodies <0.1 s/co ratio (0.0-0.9); Hepatitis A IgM Antibody Negative (Negative); Hepatitis B Core AB IgM Negative (Negative)
[2022-09-07 09:56] LABS: AFP, Tumor Marker 3.2 ng/mL (0.0-6.4); Anti-Smooth Muscle ABS 8 Units (0-19); Copper, Serum or Plasma 92 ug/dL (80-158); Haptoglobin 95 mg/dL (42-296); Perinuclear Ab (P-ANCA) <1:20 titer (Neg:<1:20)
== END | disposition home or self-care (01) ==
LOC: LAB 15:51
PROVIDERS: PCP Family Medicine; Visit Provider Nurse Practitioner Adult Health
DX: R16.0 Hepatomegaly, not elsewhere classified (principal)
CPT/HCPCS: 36415; 80053; 80074; 82105; 82140; 82164; 82390; 82525; 82728; 83010; 83036; 83516; 83615; 85025; 85610; 85652; 86140; 86225; 86235; 86256; 86703

== ENCOUNTER → 2022-09-13 | Outpatient (CLI) | payer OTHER, MEDICAID, SELFPAY ==
--- NOTE | 2022-09-13 09:36 | US_ITS ---
STUDY: ABDOMINAL ULTRASOUND - ELASTOGRAPHY REASON FOR VISIT: Female, 51 years old. Hepatomegaly. TECHNIQUE: Liver stiffness measurements were obtained on a [employer] RS 85 ultrasound machine using a CA 1-7 probe following the SRU guidelines. 3 measurements were obtained using a 2-D-SWE method. The IQR/M was 16% suggesting a quality data set. TECHNICAL QUALITY: Adequate. COMPARISON: Comparison is made with prior examination dated 06/13/2022. FINDINGS: Liver: Hepatomegaly. Median liver stiffness measured 5.5 kPa. US/Elastography Parenchyma/Organ IMPRESSION: Liver stiffness measures 5.5 kPa compatible with F0-F1 (Normal to mild liver fibrosis) Metavir score. Electronically Signed: Charan Thurman MD at 12:32 EST ,
== END | disposition home or self-care (01) ==
LOC: US 09:35
PROVIDERS: PCP Family Medicine; Referring Provider Nurse Practitioner Adult Health; Visit Provider Nurse Practitioner Adult Health
DX: R16.0 Hepatomegaly, not elsewhere classified (principal)
CPT/HCPCS: 76981

== ENCOUNTER 2022-09-22 19:12 | Emergency (ER) | payer OTHER, MEDICAID, SELFPAY ==
[2022-09-22 19:12] VITALS: BP 166/90; PULSE 84; RESP 19; TEMP 37.1; O2SAT 98; BMI 28.2
--- NOTE | 2022-09-22 19:24 | EKG12_ITS ---
Test Reason : ABD PAIN Blood Pressure : / mmHG Vent. Rate : 080 BPM Atrial Rate : 080 BPM P-R Int : 122 ms QRS Dur : 084 ms QT Int : 388 ms P-R-T Axes : 040 041 046 degrees QTc Int : 447 ms Normal sinus rhythm Normal ECG Confirmed by DEDRA MENENDEZ, LILI ([id number]), assignment editor THA VILLATORO ([id number]) on 09/26/2022 11:24:34 AM Referred By: Confirmed By:LILI COLMENARES MD
--- NOTE | 2022-09-22 19:25 | EDS_ITS ---
HPI History of Present Illness Chief Complaint: Abd Pain Detail of Chief Complaint: Abdomen and chest pain Informant: patient Narrative Narrative: Patient presents the emergency department complaint of pain in her abdomen and then points to her left chest as well. Patient states that the pain was there this morning when she woke up. Pain is achy and gnawing like pain that she rates at 3-4 out of 10 but then will go up to a 10 out of 10 if she coughs or takes a deep breath. Patient denies recent travel or surgery. No history of PE or DVT. She had no fever. She is had no vomiting. She denies diarrhea. She denies blood in her stool or black tarry stool. She denies urinary symptoms. Prior similar symptoms: No PFSH PFSH Medical History (Updated 09/22/22 @ 22:[address] Flip Wang, ) Acute postoperative anemia due to expected blood loss Breast lump Chronic neck pain Chronic thoracic back pain Hepatomegaly IBS (irritable bowel syndrome) Intertrigo Macromastia Shoulder pain Home Medications polysaccharide iron complex 150 mg iron capsule 150 mg PO DAILYCM 06/30/20 [Rx Last Taken Unknown] doxycycline monohydrate 100 mg capsule 100 mg PO BID #20 CAPSULES 09/22/22 [Rx Last Taken Unknown] Allergy/AdvReac Type Severity Reaction Status Date / Time No Known Allergies Allergy Verified 09/22/22 19:14 Family History Grandfather Colon cancer Grandmother CVA (cerebral vascular accident) Sister Seizures Father Skin cancer Surgical History History of bilateral breast reduction surgery History of Social History Smoking Status: Never smoker alcohol intake: never substance use type: does not use additional social history: does not take aspirin does not take ibuprofen ROS ROS ED Review of Systems ROS Unobtainable: other Constitutional Constitutional ED: Reports lethargy; Denies chills, fever(s), sweats or weight loss Eyes Eyes: Denies blurry vision, change in vision or diplopia ENT ENT ED: Denies rhinorrhea or sore throat Cardiovascular Cardiovascular: Reports chest pain; Denies orthopnea or racing heartbeat Respiratory/Chest Respiratory/Chest: Denies cough, dyspnea, dyspnea on exertion, orthopnea or sputum Gastrointestinal Gastrointestinal: Reports abdominal pain; Denies diarrhea, nausea or vomiting Genitourinary Genitourinary ED: Denies dysuria, hematuria or urinary frequency Musculoskeletal Musculoskeletal: Denies arthralgias, back pain, myalgias or neck pain Integumentary Denies abscess, Abrasions or rash Neurologic Neurologic: Denies headache(s) or weakness Psychiatric Psychiatric: Denies anxiety, depression or suicidal thoughts Endocrine Endocrinology: Denies polydipsia, polyphagia or polyuria Hematologic/Lymphatic Hematologic/Lymphatic: Denies easy bleeding, easy bruising or lymphadenopathy Allergic/Immunologic Allergic/Immunologic ED: Denies mouth swelling, tongue swelling or urticaria EXAM Physical Exam Const Vital Signs: 09/22/22 19:12 Temperature 98.7 F Temperature Source Temporal Pulse Rate 84 Respiratory Rate 19 H Blood Pressure 166/90 H Blood Pressure Mean 115 Pulse Ox 98 Oxygen Delivery Method Room Air Positive well nourished and well developed General Appearance ED: well developed and NAD HEENT Reports TM's clear and moist mucous membranes normocephalic and atraumatic; Negative for trauma or tenderness Tympanic Membrane ED: Yes TM's clear Eyes PERRL and EOMs intact bilaterally General Eye ED: Negative for pale conjunctiva or scleral icterus Neck no lymphadenopathy, supple and no JVD General: Negative for tenderness Chest Wall inspection of chest normal and palpation of chest normal Chest: Negative for tenderness Resp normal respiratory effort and clear to auscultation bilaterally Effort and Inspection: Negative for respiratory distress or pain with movement Auscultation: Negative for rhonchi, wheezes or diminished lung sounds Cardio regular rate, regular rhythm, S1 normal heart sound, S2 normal heart sound and no murmurs Peripheral Pulses: pulses 2+ throughout GI normal to inspection, nondistended, normoactive bowel sounds, soft to palpation, non-distended and no masses GI Narrative: Tender to palpation over the epigastric and mid abdomen as well as the right lower quadrant with some guarding. There is no rebound, rigidity, or peritoneal signs. No mass palpated. Back/Spine no CVA tenderness and no thoracic nor lumbar tenderness Extremity normal to inspection General Extremety ED: Negative for edema General Extremity: Negative for edema Neuro oriented x3, CN's II-XII intact bilaterally, no sensory deficits noted and gait normal Sensorium / Orientation: awake, alert, oriented to person, oriented to place and oriented to time Motor Exam: strength 5/5 throughout and strength abnormal Psych mental status grossly normal Skin no rashes or lesions noted and no wounds MDM MDM MDM Narrative Medical decision making narrative: Patient presents with upper abdomen and chest pain that started during the night last night. She is nontoxic-appearing. Patient had a CBC with differential obtained that showed a normal white count of 7.4 with a hemoglobin of 14.4 hematocrit 43 and platelets of 225. Chemistries unremarkable. LFTs were normal. Serum hCG was negative. D-dimer was normal at 0.32. Urinalysis was normal. CT scan of the abdomen pelvis with IV and p.o. contrast ordered showed gallstones and nonspecific ileus with diffuse fecal retention in the colon but no evidence of bowel obstruction. Patient also had hepatic and bilateral renal cysts. In the lung bases there was noted atelectasis versus infiltrate. At this time etiology of her pain unclear but does seem to be pleuritic. Given the atelectasis in the recent URI it is possible she may be developing a pneumonia or pleurisy. Patient will be started empirically on doxycycline and also advised to use ibuprofen for discomfort. Patient advised to follow-up with her primary care physician within next 3 to 5 days. She is to return if worsening pain, increasing shortness of breath, or condition should worsen anyway. Lab Data Attestation: I reviewed the patient's lab results. Labs: Laboratory Results - last 24 hr 09/22/22 09/22/22 09/22/22 19:26 19:26 19:26 WBC 7.4 RBC 4.88 Hgb 14.4 Hct 42.8 MCV 87.7 MCH 29.5 MCHC 33.6 RDW Std Deviation 38.5 RDW Coeff of Sheri 12.0 Plt Count 225 MPV 11.1 Immature Gran % (Auto) 0.400 Neut % (Auto) 62.2 Lymph % (Auto) 29.1 Pickens % (Auto) 7.3 Eos % (Auto) 0.7 Baso % (Auto) 0.3 Absolute Neuts (auto) 4.6 Absolute Lymphs (auto) 2.16 Nucleated RBC % 0 D-Dimer Quant (PE/DVT) Sodium 138 Potassium 3.6 Chloride 102 Carbon Dioxide 29.0 Anion Gap 7 BUN 13 Creatinine 0.90 Estim Creat Clear Calc 61.86 Est GFR (MDRD) Af Amer 85 Est GFR (MDRD) Non-Af 70 BUN/Creatinine Ratio 14.4 Glucose 114 H Calcium 10.0 Total Bilirubin 0.50 AST 18 ALT 14 Alkaline Phosphatase 54 Troponin I High Sens 3 Total Protein 8.8 H Albumin 4.2 Globulin 4.6 H Albumin/Globulin Ratio 0.9 Serum , Qual NEGATIVE Urine Color Urine Clarity Urine pH Ur Specific Bear Urine Protein Urine Glucose (UA) Urine Ketones Urine Occult Blood Urine Nitrite Urine Bilirubin Urine Urobilinogen Ur Leukocyte Esterase Urine RBC Urine WBC Ur Squamous Epith Cells Urine Bacteria Urine Mucus 09/22/22 09/22/22 19:26 19:27 WBC RBC Hgb Hct MCV MCH MCHC RDW Std Deviation RDW Coeff of Sheri Plt Count MPV Immature Gran % (Auto) Neut % (Auto) Lymph % (Auto) Pickens % (Auto) Eos % (Auto) Baso % (Auto) Absolute Neuts (auto) Absolute Lymphs (auto) Nucleated RBC % D-Dimer Quant (PE/DVT) 0.32 Sodium Potassium Chloride Carbon Dioxide Anion Gap BUN Creatinine Estim Creat Clear Calc Est GFR (MDRD) Af Amer Est GFR (MDRD) Non-Af BUN/Creatinine Ratio Glucose Calcium Total Bilirubin AST ALT Alkaline Phosphatase Troponin I High Sens Total Protein Albumin Globulin Albumin/Globulin Ratio Serum , Qual Urine Color Yellow Urine Clarity Clear Urine pH 6.0 Ur Specific Bear 1.010 Urine Protein Negative Urine Glucose (UA) Normal Urine Ketones Negative Urine Occult Blood Negative Urine Nitrite Negative Urine Bilirubin Negative Urine Urobilinogen Normal Ur Leukocyte Esterase 25 H Urine RBC 0 SEEN Urine WBC 0 SEEN Ur Squamous Epith Cells 0 SEEN Urine Bacteria 0 SEEN Urine Mucus 0 SEEN Radiography Diagnostic Testing: Clinical Impression(s) from Imaging Studies Chest X-Ray 09/22/22 20:25 IMPRESSION: Mild bibasilar atelectasis Electronically Signed: Satish Parekh MD at 20:45 EST Reading Location ID and State: [facility] / [place] , Service support , Abdomen/Pelvis CT 09/22/22 22:06 IMPRESSION: Cholelithiasis without definitive evidence for acute cholecystitis. HIDA scan would be helpful for further evaluation if concern for acute cholecystitis Nonspecific ileus diffuse fecal retention in the colon. No evidence for small bowel obstruction Hepatic and bilateral renal cysts Electronically Signed: Satish Parekh MD at 22:27 EST Reading Location ID and State: [facility] / [place] , Service support , 1 view chest x-ray obtained interpreted by myself as increased markings both lower lobes suspect scarring or atelectasis. Radiology felt there might be mild bibasilar atelectasis. Discharge Plan Triage Chief Complaint: Abd Pain ED Provider: Flip Wang Dx/Rx/DC Orders Clinical Impression: Chest pain, Abdominal pain Instructions: ED Abdominal Pain Unkn Cause Fem, ED Chest Pain, Uncertain Cause Prescriptions: New doxycycline monohydrate 100 mg capsule 100 mg PO BID Qty: 20 0RF No Action polysaccharide iron complex 150 MG capsule 150 mg PO DAILYCM 0RF Primary Care Provider: Vadim Desai Referrals: Vadim Desai MD [Primary Care Provider] - 3-5 Days Disposition Disposition: Home, Self Care
[2022-09-22] MEDS: 0.9% Normal Saline 1,000 ML 150 ML IV (19:30)
[2022-09-22 19:41] LABS: Bacteria 0 SEEN /hpf (None Seen); Mucous, Urine 0 SEEN /hpf (<or=2+); Red Blood Cells-Urine 0 SEEN /hpf (0-5); Squamous Epithelial Cells - UA 0 SEEN /hpf (5-10); White Blood Cells 0 SEEN /hpf (0-5)
[2022-09-22 19:42] LABS: Absolute Lymphocyte Count 2.16 X10^3/uL (0.83-4.51); Absolute Neutrophil Count 4.6 X10^3/uL (2.0-7.7); Basophil# 0.02 X10^3/uL; Basophil% 0.3 % (0-1); Eosinophil# 0.05 X10^3/uL; Eosinophils% 0.7 % (0-5); Hematocrit 42.8 % (37-47); Hemoglobin 14.4 g/dL (12.0-15.0); Lymphocyte # 2.16 X10^3/ul (0.83-4.51); Lymphocyte % 29.1 % (19-41); Mean Corp Hgb Conc 33.6 g/dL (32-36); Mean Corpuscular Hgb 29.5 pg (27.0-32.0); Mean Corpuscular Volume 87.7 fL (81-99); Mean Platelet Vol. 11.1 fl (6.2-12.0); Monocyte# 0.54 X10^3/uL; Monocyte% 7.3 % (0-10); NRBC Flagged by Analyzer 0 % (0-5); Neutrophil # 4.63 X10^3/uL (2.7-7.7); Neutrophil % 62.2 % (47-70); Platelet Count 225 K/mm3 (150-450); RBC Distribution Width SD 38.5 fl (35.1-43.9); Red Blood Count 4.88 M/mm3 (4.2-5.4); White Blood Count 7.4 K/mm3 (4.4-11.0)
[2022-09-22 19:44] LABS: Color, Urine Yellow (Yellow); Glucose, Dipstick Normal (Normal); Ketone-Dipstick Negative (Negative); Leukocyte Esterase-Dipstick 25 /ul (Negative); Nitrite-Dipstick Negative (Negative); Occult Blood-Urine Negative /ul (Negative); Protein-Dipstick Negative (Negative); Urine Bilirubin Dipstick Negative (Negative); Urine Clarity Clear (Clear); Urine Urobilinogen Normal (Normal)
[2022-09-22 19:52] LABS: Internal QC Validated? YES +Cl - CLEAR BKGD; Pregnancy, Serum, hCG Quali. NEGATIVE Negative
[2022-09-22 19:54] LABS: D-Dimer Quantitative (DVT/PE) 0.32 FEU/ug/m (0.27-0.49)
[2022-09-22 20:03] LABS: ALB/GLOB Ratio 0.9 RATIO (0.9-2.4); AST(SGOT) 18 U/L (15-37); Alanine Aminotransfer ALT/SGPT 14 U/L (13-56); Albumin, Serum 4.2 g/dL (3.2-5.0); Alkaline Phosphatase 54 U/L (45-117); Anion Gap 7 (5-15); BUN 13 mg/dL (7-18); BUN/Creat Ratio 14.4 RATIO (10-20); Chloride 102 mmol/L (98-107); EST Glomerular Filtration Rate 70 mL/min (>60); Est Glom Filt Rate - Afr Amer 85 mL/min (>60); Estimated Creatinine Clearance 61.86 ml/min; Globulin 4.6 g/dL (2.2-4.2); Glucose 114 mg/dL (74-106); Potassium 3.6 mmol/L (3.5-5.1); Protein, Total 8.8 g/dL (6.4-8.2); Sodium Level 138 mmol/L (136-145); Troponin-I HS 3 pg/mL (3.0-54.0)
--- NOTE | 2022-09-22 20:25 | RAD_ITS ---
STUDY: X-RAY CHEST REASON FOR EXAM: Female, 51 years old. chest pain TECHNIQUE: AP portable COMPARISON: None. FINDINGS: Mild discoid atelectasis in left lower lobe and minor subsegmental atelectasis at the right base. There is no demonstrated pleural abnormality. Normal size heart. Normal mediastinum and bennett. Normal visualized pulmonary arteries. Normal visualized aortic arch and descending thoracic aorta. Normal visualized thoracic spine. Normal visualized ribs, clavicles, and shoulders. There is no demonstrated abnormality of the visualized soft tissue structures of the upper abdomen. RAD/Chest 1 View (Portable) IMPRESSION: Mild bibasilar atelectasis Electronically Signed: Satish Parekh MD at 20:45 EST ,
--- NOTE | 2022-09-22 22:06 | CT_ITS ---
STUDY: CT ABDOMEN AND PELVIS WITH CONTRAST REASON FOR EXAM: Female, 51 years old. abdominal pain RADIATION DOSAGE (If Supplied By Facility): CTDIvol = ( 11.76 ) mGy, DLP = ( 704.34 ) mGycm TECHNIQUE: Transaxial images were obtained from the dome of the diaphragm to the symphysis pubis without oral contrast. Oral and amp; IV Gastrografin and amp; 100mL Isovue-370 was administered. Sagittal and coronal images were reconstructed. Individualized dose optimization techniques were used for this CT. COMPARISON: June 13, 2022 FINDINGS: Bibasilar atelectasis or infiltrates slightly more pronounced on the left.. The visualized portions of the heart are within normal limits. Small hiatal hernia is noted Nonspecific fatty infiltrated liver. There are multiple cysts in both lobes. Bile ducts are nondilated. Multiple calcified gallstones without evidence for acute inflammation. Normal spleen. Normal pancreas. Normal bilateral adrenal glands. No evidence for renal obstruction. There are multiple bilateral cysts which will not require additional imaging. . Normal visualized stomach. Mild ileus with diffuse fecal retention in the colon. No evidence for acute appendicitis Normal abdominal aorta. Normal inferior vena cava. Normal retroperitoneum. Normal urinary bladder. Uterus is deviated towards the left. Surgical clips are seen in the right adnexal region Normal abdominal wall. Normal osseous structures. CT/Abdomen/Pelvis WITH Contrast IMPRESSION: Cholelithiasis without definitive evidence for acute cholecystitis. HIDA scan would be helpful for further evaluation if concern for acute cholecystitis Nonspecific ileus diffuse fecal retention in the colon. No evidence for small bowel obstruction Hepatic and bilateral renal cysts Electronically Signed: Satish Parekh MD at 22:27 EST ,
[2022-09-22] MEDS: Doxycycline 100 MG CAPSULE PO (22:53)
[2022-09-22 22:55] VITALS: BP 118/74; PULSE 78; RESP 15; O2SAT 99
== END 2022-09-22 22:55 | disposition home or self-care (01) ==
PROVIDERS: Emergency Provider Emergency Medicine; PCP Family Medicine; Visit Provider Emergency Medicine
DX: R07.9 Chest pain, unspecified (principal); R10.31 Right lower quadrant pain; R10.13 Epigastric pain
CPT/HCPCS: 71045; 74177; 80048; 80053; 81001; 84484; 84703; 85025; 85379; 93005; 99284; J7030; Q9967; A4216

== ENCOUNTER 2022-11-16 09:45 | Day surgery (SDC) | payer OTHER, MEDICAID, SELFPAY ==
--- NOTE | 2022-11-16 10:04 | HP.PCM_ITS ---
History and Physical Date of Admission: 11/16/22 0 F who presents to the office today to establish with GI for hepatomegaly. She had left sided upper abd pain in 05/2022, pain lasted 2 days and hasn't returned, got a complete abd US which showed hepatomegaly, liver and kidney cysts, gallbladder stone and sludge. No personal or FH liver disease. No etoh. No nausea or vomiting. Food hasn't gotten stuck but it can feel like food just sits in the distal esophagus. Only rare heartburn. No further abd pain but she does get lots of bloating. Bloating is better since she started a liquid women's multivitamin--now she has less constipation. No diarrhea. No melena or hematochezia. No prior EGD or colonoscopy. Normal appetite. Weight is stable. 06/13/22 US/Abdomen Complete IMPRESSION: Hepatomegaly. Liver measures 18.5 cm. Solitary gallstone and sludge in the gallbladder lumen. Hepatic and renal cysts. ROS Const Constitutional: No fatigue ENT ENT: No difficulty swallowing Gastro GI: Positive for bloating, heartburn and excessive flatus; No abdominal pain, belching, change in bowel habits, change in stool character, coffee ground emesis, constipation, cramping, diarrhea, difficulty swallowing, feeling full early, incontinent of stools, Vomiting blood/hematemesis, Blood in stool, loose stools, Black,tarry stools, nausea/dyspepsia, pain with swallowing, vomiting or other Musc Musculoskeletal: Positive for joint pain Skin Skin: No yellowing of the eye or itchy eyes Psych Psychiatric: No anxiety and No depression Endo Endocrine: No fatigue Aller/Imm Allergy/Immunologic: No itchy eyes Mack/Lymp Hematologic/Lymphatic: No easy bleeding or easy bruising Exam Const General: cooperative, comfortable and no acute distress Orientation: alert, awake and oriented x3 HENMT Head: normal to inspection Eyes Sclera: sclerae normal Resp Effort & Inspection: normal respiratory effort GI Inspection: normal to inspection Palpation: soft, no hepatosplenomegaly, no masses and nontender Skin General: no rashes or lesions noted and no jaundice Psych Mood: euthymic mood Quality Reporting Tobacco Screening ([facility] 138) Smoking Status: Never smoker Assessment and Plan Assessment and Plan (1) Hepatomegaly: ?Status:?Chronic ?Plan: will do w/u with labs and elastography, will call her with results and plan f/u after egd and colonoscopy (2) Dysphagia: ?Status:?Acute ?Plan: will get EGD to eval for esophagitis, stricture, White's (3) Colonoscopy planned: ?Status:?Acute ?Plan: will get screening colonoscopy ? ? ? Orders: Orders HIV - [facility] Today R16.0 - Hepatomegaly, not elsewhere classified ? Comprehensive Metabolic Profil Today R16.0 - Hepatomegaly, not elsewhere classified ? CRP Today R16.0 - Hepatomegaly, not elsewhere classified ? Ferritin Today R16.0 - Hepatomegaly, not elsewhere classified ? LDH Today R16.0 - Hepatomegaly, not elsewhere classified ? Hemoglobin A1c Today R16.0 - Hepatomegaly, not elsewhere classified ? Prothrombin Time w/INR Today R16.0 - Hepatomegaly, not elsewhere classified ? F CBC W/Diff, Automated Today R16.0 - Hepatomegaly, not elsewhere classified ? Erythrocyte Sed Rate Today R16.0 - Hepatomegaly, not elsewhere classified ? Anti-Mitochondrial AB Today R16.0 - Hepatomegaly, not elsewhere classified ? VITA Comprehensive Panel Today R16.0 - Hepatomegaly, not elsewhere classified ? Hepatitis Panel Acute Today R16.0 - Hepatomegaly, not elsewhere classified ? Angiotensin Convert Enzyme Today R16.0 - Hepatomegaly, not elsewhere classified ? AFP, Tumor Marker Today R16.0 - Hepatomegaly, not elsewhere classified ? ANCA Today R16.0 - Hepatomegaly, not elsewhere classified ? Anti-Smooth Muscle ABS Today R16.0 - Hepatomegaly, not elsewhere classified ? Ceruloplasmin Today R16.0 - Hepatomegaly, not elsewhere classified ? Copper, Serum or Plasma Today R16.0 - Hepatomegaly, not elsewhere classified ? Haptoglobin Today R16.0 - Hepatomegaly, not elsewhere classified ? Ammonia Today R16.0 - Hepatomegaly, not elsewhere classified ? Abdomen Limited Today R16.0 - Hepatomegaly, not elsewhere classified ? Elastography Parenchyma/Organ Today R16.0 - Hepatomegaly, not elsewhere classified ? I have examined the patient and the H&P has been reviewed. There are no clinical changes since date of exam.
[2022-11-16] MEDS: Lactated Ringers 1,000 ML 15 ML IV (10:11)
[2022-11-16 10:12] VITALS: BP 138/94; PULSE 74; RESP 18; TEMP 37.2; O2SAT 98; BMI 28.3
--- NOTE | 2022-11-16 11:00 | COLBX_PTH ---
PATIENT: IRENA ESCOBAR LOC: [facility] U#:[id number] AGE/SX: 51/F ROOM: RE11/16/[address]: Dr. Casimiro Jolley DO : 1970 BED: DIS: 11/16/2022 SPEC #: [id number] RECD: 11/16/22 12:55 STATUS: DALLIN CHERI #: [id number] ROBIN: 11/16/22 11:[address]: Casimiro Jolley DEPT: SURGICAL PATHOLOGY RECD BY: Rafael Ramirez ENTERED: 11/16/22 13:43 SP TYPE: COLON BX OTHR DR: Dr. Vadim Desai MD Tissues: A - Duodenum, NOS B - Esophagus, NOS C - COLON BIOPSY Procedures: Surgery Specimen Level IV HEADER OPERATION: [place] [place] with [place] PRE-OP DIAGNOSIS: Hepatomegaly, dysphagia, colonoscopy TISSUE SUBMITTED: A ? Duodenum biopsy, B ? Distal esophagus biopsy, C ? Hepatic flexure MICROSCOPIC DIAGNOSIS A. Duodenum, biopsy: No pathologic change. B. Distal esophagus, biopsy: Fragments of gastric mucosa with mild chronic inflammation. No evidence of goblet cell metaplasia. See comment. C. Colonic polyp at hepatic flexure, biopsy: Tubular adenoma. AM:eunice 11/17/2022 COMMENT B. Alcian blue/PAS stain with matched control supports the above diagnosis. MICROSCOPIC DESCRIPTION Slides are reviewed. GROSS DESCRIPTION A - Received in fixative is one container labeled with the patient's name and designated duodenum biopsy. The specimen consists of multiple irregular fragments of light hopkins soft tissue that in aggregate measure 1.0 x 0.2 x 0.1 cm. The specimen is totally submitted in one cassette. B - Received in fixative is one container labeled with the patient's name and designated distal esophagus biopsy. The specimen consists of multiple irregular fragments of light hopkins soft tissue that in aggregate measure 1.2 x 0.2 x 0.1 cm. The specimen is totally submitted in one cassette. C - Received in fixative is one container labeled with the patient's name and designated hepatic flexure. The specimen consists of a hopkins-pink polyp measuring 0.7 x 0.5 x 0.4 cm. Also present in the container are multiple fragments of hopkins soft tissue mixed with fecal material measuring in aggregate 2.0 x 0.5 x 0.1 cm. The entire specimen is submitted in one cassette. / SJ:eunice 11/16/2022 TC:5 CPT: 50589 x3
[2022-11-16 11:43] VITALS: BP 117/82; BP 138/94; PULSE 77; RESP 14; TEMP 36.2; O2SAT 97
[2022-11-16 11:45] VITALS: BP 113/74; BP 138/94; PULSE 77; RESP 96; O2SAT 14
--- NOTE | 2022-11-16 11:45 | OP.EGD_ITS ---
Patient Name: Morelia Weiss Procedure Date: 11/16/2022 11:03 AM Date of : 1970 Age: 51 Procedure: Upper GI endoscopy Indications: Dysphagia Providers: Casimiro Jolley DO Referring MD: Casimiro Jolley DO Medicines: Monitored Anesthesia Care Patient Profile: This is a 51 year old female. Refer to note in patient chart for documentation of history and physical. Patient has symptoms of chronic dysphagia. Complications: No immediate complications. Procedure: Pre-Anesthesia Assessment: - Prior to the procedure, a History and Physical was performed, and patient medications and allergies were reviewed. The patient is competent. The risks and benefits of the procedure and the sedation options and risks were discussed with the patient. All questions were answered and informed consent was obtained. Patient identification and proposed procedure were verified by the physician. Mental Status Examination: normal. Prophylactic Antibiotics: The patient does not require prophylactic antibiotics. Prior Anticoagulants: The patient has taken no previous anticoagulant or antiplatelet agents. After reviewing the risks and benefits, the patient was deemed in satisfactory condition to undergo the procedure. The anesthesia plan was to use monitored anesthesia care (MAC). Immediately prior to administration of medications, the patient was re-assessed for adequacy to receive sedatives. The heart rate, respiratory rate, oxygen saturations, blood pressure, adequacy of pulmonary ventilation, and response to care were monitored throughout the procedure. The physical status of the patient was re-assessed after the procedure. After obtaining informed consent, the endoscope was passed under direct vision. Throughout the procedure, the patient's blood pressure, pulse, and oxygen saturations were monitored continuously. The pediatric colonoscope was introduced through the mouth, and advanced to the second part of duodenum. The upper GI endoscopy was accomplished without difficulty. The patient tolerated the procedure well. Scope In: 11:14:53 AM Scope Out: 11:18:18 AM Total Procedure Duration Time 0 hours 3 minutes 25 seconds Findings: LA Grade B (one or more mucosal breaks greater than 5 mm, not extending between the tops of two mucosal folds) esophagitis with no bleeding was found 35 to 37 cm from the incisors. Biopsies were taken with a cold forceps for histology. Verification of patient identification for the specimen was done. Estimated blood loss was minimal. A small hiatal hernia was present. The exam of the stomach was otherwise normal. The second portion of the duodenum was normal. Biopsies were taken with a cold forceps for histology. Verification of patient identification for the specimen was done. Estimated blood loss was minimal. Impression: - LA Grade B reflux esophagitis. Biopsied. - Small hiatal hernia. - Normal second portion of the duodenum. Biopsied. Recommendation: - Discharge patient to home. - Resume previous diet. - Continue present medications. - Await pathology results. Procedure Code(s): --- Professional --- 83901, Esophagogastroduodenoscopy, flexible, transoral; with biopsy, single or multiple CPT copyright 2017 [employer]. All rights reserved. The codes documented in this report are preliminary and upon medicine assistant review may be revised to meet current compliance requirements. Casimiro Jolley DO 11/16/2022 11:45:10 AM This report has been signed electronically. Number of Addenda: 0 Note Initiated On: 11/16/2022 11:03 AM
--- NOTE | 2022-11-16 11:46 | OP.CCLET_ITS ---
11/16/2022 Vadim Desai [address] [place] [address] Re : Upper GI endoscopy procedure for Morelia Weiss Dear Dr. Desai This procedure was performed on Wednesday, November 16, 2022. My impressions and recommendations are as follows: Impressions : - LA Grade B reflux esophagitis. Biopsied. - Small hiatal hernia. - Normal second portion of the duodenum. Biopsied. Recommendations : - Discharge patient to home. - Resume previous diet. - Continue present medications. - Await pathology results. My findings are described in the full procedure note, which is enclosed. If I can be of further assistance, please feel free to contact me at . Sincerely, Casimiro Jolley, 11/16/2022 11:45:10 AM This report has been signed electronically.
--- NOTE | 2022-11-16 11:49 | OP.COLON_ITS ---
Patient Name: Morelia Weiss Procedure Date: 11/16/2022 11:18 AM Date of : 1970 Age: 51 Procedure: Colonoscopy Indications: Screening for colorectal malignant neoplasm Providers: Casimiro Jolley DO Referring MD: Casimiro Jolley DO Medicines: Monitored Anesthesia Care Patient Profile: This is a 51 year old female. Refer to note in patient chart for documentation of history and physical. Patient has symptoms of chronic dysphagia. Last Colonoscopy: none. The patient's first colonoscopy is today. Complications: No immediate complications. Procedure: Pre-Anesthesia Assessment: - Prior to the procedure, a History and Physical was performed, and patient medications and allergies were reviewed. The patient is competent. The risks and benefits of the procedure and the sedation options and risks were discussed with the patient. All questions were answered and informed consent was obtained. Patient identification and proposed procedure were verified by the physician. Mental Status Examination: normal. Prophylactic Antibiotics: The patient does not require prophylactic antibiotics. Prior Anticoagulants: The patient has taken no previous anticoagulant or antiplatelet agents. After reviewing the risks and benefits, the patient was deemed in satisfactory condition to undergo the procedure. The anesthesia plan was to use monitored anesthesia care (MAC). Immediately prior to administration of medications, the patient was re-assessed for adequacy to receive sedatives. The heart rate, respiratory rate, oxygen saturations, blood pressure, adequacy of pulmonary ventilation, and response to care were monitored throughout the procedure. The physical status of the patient was re-assessed after the procedure. After I obtained informed consent, the scope was passed under direct vision. Throughout the procedure, the patient's blood pressure, pulse, and oxygen saturations were monitored continuously. The pediatric colonoscope was introduced through the anus and advanced to the cecum, identified by appendiceal orifice and ileocecal valve. The colonoscopy was performed without difficulty. The patient tolerated the procedure well. The quality of the bowel preparation was adequate. Scope In: 11:19:49 AM Scope Withdrawal Time 0 hours 9 minutes 57 seconds Scope Out: 11:39:16 AM Total Procedure Duration Time 0 hours 19 minutes 27 seconds Findings: The perianal and digital rectal examinations were normal. A few small-mouthed diverticula were found in the recto-sigmoid colon and sigmoid colon. A 8 mm polyp was found in the hepatic flexure. The polyp was sessile. The polyp was removed with a hot snare. Resection and retrieval were complete. Verification of patient identification for the specimen was done. Estimated blood loss was minimal. Impression: - Diverticulosis in the recto-sigmoid colon and in the sigmoid colon. - One 8 mm polyp at the hepatic flexure, removed with a hot snare. Resected and retrieved. Recommendation: - Repeat colonoscopy in 5 years for surveillance. - Continue present medications. Procedure Code(s): --- Professional --- 30896, Colonoscopy, flexible; with removal of tumor(s), polyp(s), or other lesion(s) by snare technique CPT copyright 2017 [employer]. All rights reserved. The codes documented in this report are preliminary and upon flat locker review may be revised to meet current compliance requirements. Casimiro Jolley DO 11/16/2022 11:48:46 AM This report has been signed electronically. Number of Addenda: 0 Note Initiated On: 11/16/2022 11:18 AM
[2022-11-16 11:50] VITALS: BP 111/71; BP 138/94; PULSE 74; RESP 16; O2SAT 96
--- NOTE | 2022-11-16 11:50 | OP.CCLET_ITS ---
11/16/2022 Vadim Desai [address] [place] [address] Re : Colonoscopy procedure for Morelia Weiss Dear Dr. Desai This procedure was performed on Wednesday, November 16, 2022. My impressions and recommendations are as follows: Impressions : - Diverticulosis in the recto-sigmoid colon and in the sigmoid colon. - One 8 mm polyp at the hepatic flexure, removed with a hot snare. Resected and retrieved. Recommendations : - Repeat colonoscopy in 5 years for surveillance. - Continue present medications. My findings are described in the full procedure note, which is enclosed. If I can be of further assistance, please feel free to contact me at . Sincerely, Casimiro Jolley, 11/16/2022 11:48:46 AM This report has been signed electronically.
[2022-11-16 12:01] VITALS: BP 126/81; BP 138/94; PULSE 73; RESP 18; TEMP 36.1; O2SAT 97
[2022-11-16 12:18] VITALS: BP 138/94
== END 2022-11-16 12:29 | disposition home or self-care (01) ==
LOC: EN 09:48 → AC 09:48
PROVIDERS: PCP Family Medicine; Referring Provider Family Medicine; Visit Provider Internal Medicine Gastroenterology
PROC: 0DJD8ZZ Inspection of Lower Intestinal Tract, Via Natural or Artificial Opening Endoscopic (ICD-10-PCS; CPT 45378; principal; 2022-11-16 10:55)
DX: Z12.11 Encounter for screening for malignant neoplasm of colon (principal); K44.9 Diaphragmatic hernia without obstruction or gangrene; R16.0 Hepatomegaly, not elsewhere classified; K21.00 Gastro-esophageal reflux disease with esophagitis, without bleeding; R13.10 Dysphagia, unspecified; K57.30 Diverticulosis of large intestine without perforation or abscess without bleeding; D12.3 Benign neoplasm of transverse colon
CPT/HCPCS: 45385; 43239; 88305; J7120; J2405

== ENCOUNTER → 2024-06-20 | Outpatient (CLI) | payer SELFPAY ==
--- NOTE | 2024-06-20 11:01 | RAD_ITS ---
EXAM: XR CHEST, 2 VIEWS CLINICAL INDICATION: HYPERTENSION TECHNIQUE: Frontal and lateral views of the chest. COMPARISON: XR Chest dated 09/22/2022 FINDINGS: LUNGS AND PLEURAL SPACES: Residual linear scarring or atelectasis within the lingula. Lungs are otherwise clear. HEART: Normal heart size. MEDIASTINUM: No mediastinal or hilar mass. BONES/JOINTS: No acute abnormality. RAD/Chest PA and Lateral IMPRESSION: No acute cardiopulmonary abnormality. Electronically Signed: Darrell Rasmussen MD at 15:36 EST ,
[2024-07-01 12:08] LABS: HPV APTIMA, High Risk Negative (Negative)
[2024-07-01 12:49] LABS: HPV Reflexed? YES, CHARGE PATIENT
== END | disposition home or self-care (01) ==
PROVIDERS: PCP Family Medicine
DX: Z01.419 Encounter for gynecological examination (general) (routine) without abnormal findings (principal); Z12.31 Encounter for screening mammogram for malignant neoplasm of breast; I10 Essential (primary) hypertension
CPT/HCPCS: 71046; 87624; 88175; G0145

== ENCOUNTER → 2024-06-26 | Outpatient (CLI) | payer SELFPAY ==
--- NOTE | 2024-06-26 09:51 | BI_ITS ---
MAMMOGRAPHY - BILATERAL SCREENING 3-D TOMOSYNTHESIS REASON FOR EXAM: Female, 53 years old. Routine screening PERTINENT HISTORY: No significant family history. Reduction surgery TECHNIQUE: 2-D mammograms and 3-D Tomosynthesis of the breast (s) were performed. CAD was performed. COMPARISON: 06/28/2021 FINDINGS: The breast composition is composed of scattered fibroglandular density. Scattered benign calcifications are seen. No dense spiculated masses or suspicious microcalcifications are identified. No architectural distortion is identified. There is no skin thickening or retraction. There has been no significant change since the prior study. BI/SCRN MAMM (CAD)W/JAY BILAT IMPRESSION: No mammographic signs of malignancy. Routine yearly mammograms recommended. ASSESSMENT CATEGORY: BIRADS Category 1: Negative. A letter regarding these results will be sent to the patient by the facility within 30 days. FOLLOW UP RECOMMENDATION: Yearly follow up mammogram recommended. (A) Approximately 10% of breast cancers are not detected by mammography. A normal mammogram should not delay biopsy of a clinically suspicious abnormality. Electronically Signed: Maverick Phan MD at 10:56 EST ,
== END | disposition home or self-care (01) ==
PROVIDERS: PCP Family Medicine
DX: Z12.31 Encounter for screening mammogram for malignant neoplasm of breast (principal)
CPT/HCPCS: 77063; 77067